=== PATIENT | male | born 1980 | race African-American/Black ===

== ENCOUNTER 2016-11-18 14:50 | Emergency (ER) | payer SELFPAY ==
[2016-11-18 15:20] LABS: #Basophils 0.1 thou/uL (0.0-0.2); #Eosinphils 0.1 thou/uL (0.0-0.7); #Lymphocytes 2.2 thou/uL (1.20-3.40); #Monocytes 0.6 thou/uL (0.11-0.59); #Neutrophils 6.5 thou/uL (1.40-6.50); %Eosinophils 0.8 % (0.0-10.0); %Lymphocytes 23.2 % (21.0-51.0); %Monocytes 6.5 % (0.0-10.0); Hematocrit 46.3 % (42.0-52.0); Mean Platelet Volume 7.9 fL (7.4-10.4); Red Blood Cell (RBC) Count 5.08 mill/uL (4.70-6.10); White Blood Cell (WBC) Count 9.5 thou/uL (4.8-10.8)
[2016-11-18 15:29] LABS: Bilirubin Negative (Negative); Blood, Urine Negative (Negative); Glucose, Urine (Dipstick) Negative (Negative); Ketone, Urine Negative (Negative); Nitrite Negative (Negative); Protein, Urine (Dipstick) Negative (Neg-Trace); Urobilinogen 0.2 mg/dL (0.2-1.0)
[2016-11-18 15:35] LABS: ALT (SGPT) 16 U/L (8-55); AST (SGOT) 23 U/L (5-34); Alkaline Phosphatase 58 U/L (40-150); Anion Gap 13 mmol/L (10-20); BUN (Urea Nitrogen) 7 mg/dL (8.9-20.6); Bilirubin, Total 0.4 mg/dL (0.2-1.2); CK (CPK) 864 U/L (30-200); Calc. Creatinine Clearance 0 mL/min (70-130); Calcium 9.3 mg/dL (7.8-10.44); Carbon Dioxide 25 mmol/L (22-29); Chloride 105 mmol/L (98-107); Estimated GFR-MDRD 81; Globulin 3.9 g/dL (2.4-3.5); Protein, Total 8.1 g/dL (6.0-8.3)
[2016-11-18 15:37] LABS: Acetaminophen Less than 6.0 mcg/mL (10.0-30.0); Salicylate Less than 8.0 mg/dL (15.0-30.0)
[2016-11-18 15:39] LABS: Amphetamine Not Detected (NotDetected); Methadone Not Detected (NotDetected); Methamphetamine Not Detected (NotDetected)
[2016-11-18 15:49] LABS: Troponin I Less than 0.010 ng/mL (< 0.028)
--- NOTE | 2016-11-18 17:20 | RAD ---
RADIOGRAPH CHEST 1 VIEW: HISTORY: 36-year-old male with acute left-sided chest pain. FINDINGS: There are no air space densities, pulmonary edema, pneumothorax, or cardiomegaly. The lateral costo phrenic angles are sharp. IMPRESSION: No acute cardiopulmonary findings. [email or web address] [] POS: [facility]
[2016-11-18] MEDS ORDERED: Divalproex Sodium DR 500 MG TAB PO SCH (21:45)
[2016-11-18] MEDS ORDERED: Lorazepam 1 MG TAB PO SCH (21:45)
[2016-11-18] MEDS ORDERED: Lorazepam 1 MG TAB ONE (21:59)
[2016-11-19] MEDS ORDERED: Ibuprofen 200 MG TAB ONE (10:55)
[2016-11-19] MEDS ORDERED: Acetaminophen 325 MG TAB ONE (16:31)
[2016-11-19] MEDS ORDERED: Divalproex Sodium DR 500 MG TAB PO SCH (21:00)
[2016-11-19] MEDS ORDERED: Lorazepam 1 MG TAB PO SCH (21:00)
[2016-11-19] MEDS ORDERED: Lorazepam 1 MG TAB ONE (21:45)
== END 2016-11-19 22:11 | disposition home or self-care (01) ==
LOC: ERS 14:50
DX: F23 Brief psychotic disorder (principal); F14.10 Cocaine abuse, uncomplicated; F16.10 Hallucinogen abuse, uncomplicated; J45.909 Unspecified asthma, uncomplicated; F25.0 Schizoaffective disorder, bipolar type; F17.210 Nicotine dependence, cigarettes, uncomplicated; Z79.899 Other long term (current) drug therapy
CPT/HCPCS: 71010; 80053; 80306; 80307; 81003; 82553; 84443; 84484; 85025; 93005

== ENCOUNTER 2016-11-25 00:45 | Emergency (ER) | payer SELFPAY ==
[2016-11-25] MEDS ORDERED: Diazepam 5 MG TAB ONE (00:47)
[2016-11-25] MEDS ORDERED: Diazepam 10 MG/2 ML SYRINGE ONE ×6 (00:49→02:26)
[2016-11-25 01:04] LABS: #Basophils 0.1 thou/uL (0.0-0.2); #Eosinphils 0.1 thou/uL (0.0-0.7); #Lymphocytes 2.9 thou/uL (1.20-3.40); #Monocytes 0.6 thou/uL (0.11-0.59); #Neutrophils 5.6 thou/uL (1.40-6.50); %Basophils 0.6 % (0.0-1.0); %Eosinophils 0.6 % (0.0-10.0); %Lymphocytes 32.1 % (21.0-51.0); %Monocytes 6.1 % (0.0-10.0); Hematocrit 41.4 % (42.0-52.0); Mean Platelet Volume 7.7 fL (7.4-10.4); Red Blood Cell (RBC) Count 4.51 mill/uL (4.70-6.10); White Blood Cell (WBC) Count 9.2 thou/uL (4.8-10.8)
[2016-11-25 01:30] LABS: ALT (SGPT) 13 U/L (8-55); AST (SGOT) 18 U/L (5-34); Alkaline Phosphatase 53 U/L (40-150); Anion Gap 17 mmol/L (10-20); BUN (Urea Nitrogen) 5 mg/dL (8.9-20.6); Bilirubin, Total 0.4 mg/dL (0.2-1.2); CK (CPK) 478 U/L (30-200); Calc. Creatinine Clearance 0 mL/min (70-130); Calcium 8.6 mg/dL (7.8-10.44); Carbon Dioxide 20 mmol/L (22-29); Chloride 100 mmol/L (98-107); Estimated GFR-MDRD Greater than 90; Globulin 3.2 g/dL (2.4-3.5); Protein, Total 7.2 g/dL (6.0-8.3)
[2016-11-25 01:33] LABS: Troponin I Less than 0.010 ng/mL (< 0.028)
[2016-11-25 04:39] LABS: #Basophils 0.1 thou/uL (0.0-0.2); #Eosinphils 0.1 thou/uL (0.0-0.7); #Lymphocytes 2.2 thou/uL (1.20-3.40); #Monocytes 0.3 thou/uL (0.11-0.59); #Neutrophils 4.6 thou/uL (1.40-6.50); %Basophils 0.8 % (0.0-1.0); %Eosinophils 0.7 % (0.0-10.0); %Lymphocytes 30.3 % (21.0-51.0); %Monocytes 4.8 % (0.0-10.0); Hematocrit 41.9 % (42.0-52.0); Mean Platelet Volume 7.8 fL (7.4-10.4); Red Blood Cell (RBC) Count 4.54 mill/uL (4.70-6.10); White Blood Cell (WBC) Count 7.2 thou/uL (4.8-10.8)
[2016-11-25 04:58] LABS: Acetaminophen Less than 6.0 mcg/mL (10.0-30.0); Salicylate Less than 8.0 mg/dL (15.0-30.0)
[2016-11-25 05:10] LABS: Bilirubin Negative (Negative); Blood, Urine Negative (Negative); Glucose, Urine (Dipstick) Negative (Negative); Ketone, Urine Negative (Negative); Nitrite Negative (Negative); Protein, Urine (Dipstick) Negative (Neg-Trace); Urobilinogen 0.2 mg/dL (0.2-1.0)
[2016-11-25 05:18] LABS: Amphetamine Not Detected (NotDetected); Methadone Not Detected (NotDetected); Methamphetamine Not Detected (NotDetected)
[2016-11-25] MEDS ORDERED: Potassium Chloride 20 MEQ TAB ONE (05:22)
== END 2016-11-25 09:20 | disposition home or self-care (01) ==
LOC: ERS 00:45
DX: F14.10 Cocaine abuse, uncomplicated (principal); F16.10 Hallucinogen abuse, uncomplicated; J45.909 Unspecified asthma, uncomplicated; F31.9 Bipolar disorder, unspecified; F25.9 Schizoaffective disorder, unspecified; F17.210 Nicotine dependence, cigarettes, uncomplicated
CPT/HCPCS: 36415; 80053; 80306; 80307; 81003; 82553; 84443; 84484; 85025; 93005; 96361; 96374; 96376; J3360

== ENCOUNTER 2017-02-11 23:35 | Emergency (ER) | payer SELFPAY ==
[2017-02-12 00:17] LABS: Amphetamine Not Detected (NotDetected); Methadone Not Detected (NotDetected); Methamphetamine Not Detected (NotDetected)
[2017-02-12 00:27] LABS: #Basophils 0.1 thou/uL (0.0-0.2); #Eosinphils 0.1 thou/uL (0.0-0.7); #Lymphocytes 3.8 thou/uL (1.20-3.40); #Monocytes 0.5 thou/uL (0.11-0.59); #Neutrophils 5.1 thou/uL (1.40-6.50); %Eosinophils 1.5 % (0.0-10.0); %Lymphocytes 39.3 % (21.0-51.0); %Monocytes 5.4 % (0.0-10.0); Hematocrit 48.4 % (42.0-52.0); White Blood Cell (WBC) Count 9.6 thou/uL (4.8-10.8)
[2017-02-12 00:52] LABS: ALT (SGPT) 21 U/L (8-55); AST (SGOT) 22 U/L (5-34); Alkaline Phosphatase 67 U/L (40-150); Anion Gap 14 mmol/L (10-20); BUN (Urea Nitrogen) 6 mg/dL (8.9-20.6); Bilirubin, Total Less than 0.2 mg/dL (0.2-1.2); CK (CPK) 295 U/L (30-200); Calc. Creatinine Clearance 0 mL/min (70-130); Calcium 9.5 mg/dL (7.8-10.44); Carbon Dioxide 22 mmol/L (22-29); Chloride 106 mmol/L (98-107); Estimated GFR-MDRD Greater than 90; Globulin 3.3 g/dL (2.4-3.5); Protein, Total 7.4 g/dL (6.0-8.3); Troponin I Less than 0.010 ng/mL (< 0.028)
[2017-02-12] MEDS ORDERED: Lorazepam 2 MG/ML VIAL ONE (01:07)
--- NOTE | 2017-02-12 08:01 | RAD ---
2 VIEWS CHEST: Date: 02/11/17 COMPARISON: 04/24/11. HISTORY: Chest pain. FINDINGS: Two views of the chest show normal sized cardiomediastinal silhouette. There is no evidence of consol idation, mass, or pleural effusion. The bones are unremarkable. IMPRESSION: No evidence of acute cardiopulmonary disease. POS: [facility]
== END 2017-02-12 01:00 | disposition home or self-care (01) ==
LOC: ERS 23:35
DX: R07.9 Chest pain, unspecified (principal); F14.10 Cocaine abuse, uncomplicated; F12.10 Cannabis abuse, uncomplicated; J45.909 Unspecified asthma, uncomplicated; F31.9 Bipolar disorder, unspecified; F17.210 Nicotine dependence, cigarettes, uncomplicated
CPT/HCPCS: 36415; 71020; 80053; 80306; 82550; 82553; 84484; 85025; 93005; 96360; 96372; J2060

== ENCOUNTER 2017-02-23 00:45 | Emergency (ER) | payer SELFPAY ==
[2017-02-23] MEDS ORDERED: methylPREDNISolone Sod Succ/PF 125 MG/2 ML VIAL ONE (01:17)
[2017-02-23 01:46] LABS: #Basophils 0.1 thou/uL (0.0-0.2); #Lymphocytes 2.1 thou/uL (1.20-3.40); #Monocytes 0.6 thou/uL (0.11-0.59); #Neutrophils 6.7 thou/uL (1.40-6.50); %Basophils 0.8 % (0.0-1.0); %Eosinophils 0.3 % (0.0-10.0); %Lymphocytes 22.1 % (21.0-51.0); %Monocytes 6.8 % (0.0-10.0); %Neutrophils 70.1 % (42.0-75.0); Hemoglobin 16.8 g/dL (14.0-18.0); Mean Corpuscular HGB CONC 33.3 g/dL (32.0-36.0); Mean Corpuscular Hemoglobin 32.6 pg (27.0-31.0); Mean Corpuscular Volume 97.9 fl (80.0-94.0); Mean Platelet Volume 9.1 fL (7.4-10.4); Platelet Count 228 thou/uL (130-400); RBC Distribution Width 12.4 % (11.5-14.5); Red Blood Cell (RBC) Count 5.14 mill/uL (4.70-6.10); White Blood Cell (WBC) Count 9.5 thou/uL (4.8-10.8)
[2017-02-23 02:12] LABS: CKMB 2.9 ng/mL (0-6.6); Troponin I Less than 0.010 ng/mL (< 0.028)
[2017-02-23 02:24] LABS: ALT (SGPT) 19 U/L (8-55); AST (SGOT) 28 U/L (5-34); Albumin 4.6 g/dL (3.5-5.0); Alkaline Phosphatase 68 U/L (40-150); Anion Gap 18 mmol/L (10-20); BUN (Urea Nitrogen) 4 mg/dL (8.9-20.6); Bilirubin, Total 0.3 mg/dL (0.2-1.2); Calc. Creatinine Clearance 0 mL/min (70-130); Calcium 9.9 mg/dL (7.8-10.44); Carbon Dioxide 21 mmol/L (22-29); Chloride 101 mmol/L (98-107); Estimated GFR-MDRD Greater than 90; Globulin 3.4 g/dL (2.4-3.5); Glucose 114 mg/dL (70-105); Potassium 3.6 mmol/L (3.5-5.1); Sodium 136 mmol/L (136-145)
[2017-02-23 03:15] LABS: Amphetamine Not Detected (NotDetected); Barbiturates Screen Not Detected (NotDetected); Benzodiazepine Screen Not Detected (NotDetected); Cocaine Metabolite Screen Detected (NotDetected); Medtox Control Line Valid? VALID (VALID); Medtox Reader # READER 4; Methadone Not Detected (NotDetected); Methamphetamine Not Detected (NotDetected); Opiate Screen Not Detected (NotDetected); Oxycodone Screen Not Detected (NotDetected); Phencyclidine (PCP) Not Detected (NotDetected); THC/Cannabinoid Screen Not Detected (NotDetected); Tricyclic Screen Not Detected (NotDetected)
[2017-02-23 04:56] LABS: Acetaminophen Less than 6.0 mcg/mL (10.0-30.0); Alcohol 54 mg/dL (Less than 10); Salicylate Less than 8.0 mg/dL (15.0-30.0)
--- NOTE | 2017-02-23 08:30 | RAD ---
TWO VIEW CHEST: COMPARISON: 02/12/17. CLINICAL HISTORY: Dyspnea. FINDINGS: Lungs are clear. Cardiac silhouette is normal in size. Osseous structures are intact. No effusion or pneumothorax. IMPRESSION: Normal chest radiograph. POS: [facility]
--- NOTE | 2017-05-10 11:44 | EKG ---
Test Reason : TACHYCARDIA Blood Pressure : / mmHG Vent. Rate : 135 BPM Atrial Rate : 135 BPM P-R Int : 148 ms QRS Dur : 076 ms QT Int : 282 ms P-R-T Axes : 059 001 062 degrees QTc Int : 423 ms Sinus tachycardia Nonspecific T wave abnormality ST elevation V3 Abnormal ECG Confirmed by GABRIELLA ROBERTSON M.D. ([id number]), newspaper editor managing ELDA BELTRAN ([id number]) on 05/10/2017 11:43:45 AM Referred By: Confirmed By:GABRIELLA ROBERTSON M.D.
== END 2017-02-23 10:54 | disposition home or self-care (01) ==
LOC: ERS 00:45
DX: J45.901 Unspecified asthma with (acute) exacerbation (principal); F14.90 Cocaine use, unspecified, uncomplicated; R45.851 Suicidal ideations; F31.9 Bipolar disorder, unspecified; F25.9 Schizoaffective disorder, unspecified; F17.210 Nicotine dependence, cigarettes, uncomplicated
CPT/HCPCS: 71046; 80053; 80306; 80307; 82553; 84443; 84484; 85025; 93005; 94640; 96361; 96374; J2930; J7620